=== PATIENT | female | born 1995 | race Caucasian/White ===

== ENCOUNTER 2024-10-17 10:02 | Emergency (ER) | payer OTHER ==
[2024-10-17 10:09] VITALS: RESP 18; TEMP 97.6; BMI 23.0
[2024-10-17] MEDS ORDERED: ACETAMINOPHEN 500 MG TABLET (FP) ONE (10:40)
[2024-10-17] MEDS ORDERED: DIPHTH,PERTUSS(ACELL),TET 0.5 ML DISP.SYRIN IM ONE (10:41)
[2024-10-17] MEDS: ACETAMINOPHEN 500 MG TABLET (FP) PO ONE (10:45)
[2024-10-17] MEDS: DIPHTH,PERTUSS(ACELL),TET 0.5 ML DISP.SYRIN IM ONE (10:46)
[2024-10-17 12:18] VITALS: BP 124/78; PULSE 84
== END 2024-10-17 12:27 | disposition home or self-care (01) ==
LOC: JERFT 10:02
PROC: 3E0234Z Introduction of Serum, Toxoid and Vaccine into Muscle, Percutaneous Approach (ICD-10-PCS; principal; 2024-10-17)
DX: S61.303A Unspecified open wound of left middle finger with damage to nail, initial encounter (principal); W23.0XXA Caught, crushed, jammed, or pinched between moving objects, initial encounter; Z23 Encounter for immunization
CPT/HCPCS: 84703; 90471; 90715; 99284-25